=== PATIENT | male | born 1985 | race Caucasian/White ===

== ENCOUNTER 2021-03-06 06:44 | Inpatient (IN) | payer OTHER ==
[2021-03-06] MEDS ORDERED: KETOROLAC TROMETHAMINE 15 MG/ML VIAL IVPUSH ONE (08:00)
[2021-03-06] MEDS ORDERED: LIDOCAINE 5% TOPICAL PATCH TP ONE (08:00)
[2021-03-06] MEDS ORDERED: KETOROLAC TROMETHAMINE 15 MG/ML VIAL ONE (08:37)
[2021-03-06] MEDS ORDERED: KETOROLAC TROMETHAMINE 15 MG/ML VIAL IM ONE (08:56)
[2021-03-06 09:06] LABS: BASO % 0.9 % (0-2.0); EOS % 7.3 % (0-4.5); HEMATOCRIT 38.4 % (35.4-49); LYMPH % 44.1 % (8-40); MCH 31.5 pg (25.7-33.7); MCHC 33.8 g/dl (32.0-35.9); MEAN CELL VOLUME 93.1 fl (80-96); MEAN PLT VOLUME 7.8 fl (7.5-11.1); MONO % 7.1 % (3.8-10.2); NEUT % 40.6 % (42.8-82.8); PLATELET COUNT 454 10^3/uL (134-434); RBC 4.12 M/mm3 (4.00-5.60); RDW 13.7 % (11.9-15.9); WHITE BLOOD COUNT 9.8 K/mm3 (4.0-10.0)
[2021-03-06 09:43] LABS: CALCIUM 8.9 mg/dL (8.5-10.1)
[2021-03-06 09:45] LABS: BLOOD UREA NITROGEN 13.6 mg/dL (7-18)
[2021-03-06] MEDS ORDERED: morphine SULFATE 4 MG/ML VIAL IVPUSH ONE (09:59)
[2021-03-06 18:22] VITALS: BMI 22.2
[2021-03-06] MEDS: CYCLOBENZAPRINE HCL 5 MG TABLET PO PRN (19:49)
[2021-03-06] MEDS: morphine SULFATE 4 MG/ML VIAL IVPUSH PRN (21:10)
[2021-03-06] MEDS ORDERED: LIDOCAINE PATCH REMOVAL MC SCH (22:00)
[2021-03-06] MEDS: LIDOCAINE PATCH REMOVAL MC SCH (23:26)
[2021-03-07] MEDS: CYCLOBENZAPRINE HCL 5 MG TABLET PO PRN ×3 (04:32→23:20)
[2021-03-07 08:30] LABS: EOS % 10.4 % (0-4.5); HEMATOCRIT 36.8 % (35.4-49); HEMOGLOBIN 12.5 GM/dL (11.7-16.9); MCH 31.4 pg (25.7-33.7); MCHC 33.9 g/dl (32.0-35.9); MEAN CELL VOLUME 92.6 fl (80-96); NEUT % 28.6 % (42.8-82.8); PLATELET COUNT 410 10^3/uL (134-434); RBC 3.98 M/mm3 (4.00-5.60); RDW 13.8 % (11.9-15.9); WHITE BLOOD COUNT 7.5 K/mm3 (4.0-10.0)
[2021-03-07 08:58] LABS: CREATININE 1.3 mg/dL (0.55-1.3)
[2021-03-07 08:59] LABS: ALBUMIN 2.9 g/dl (3.4-5.0); CALCIUM 8.6 mg/dL (8.5-10.1); MAGNESIUM 2.3 mg/dL (1.8-2.4)
[2021-03-07 09:00] LABS: BILIRUBIN,TOTAL 0.2 mg/dL (0.2-1); TOT PROT 5.9 g/dl (6.4-8.2)
[2021-03-07] MEDS: morphine SULFATE 4 MG/ML VIAL IVPUSH PRN (10:37)
[2021-03-07] MEDS: LIDOCAINE 5% TOPICAL PATCH TP SCH (10:37)
[2021-03-07] MEDS: NICOTINE 7 MG/24 HOURS TOPICAL PATCH TD SCH (12:27)
[2021-03-07] MEDS: traMADol HCL 50 MG TABLET PO PRN ×2 (12:27→21:04)
[2021-03-07] MEDS: DOCUSATE SODIUM 100 MG CAPSULE (FP) PO SCH ×2 (12:27→21:04)
[2021-03-07] MEDS: ACETAMINOPHEN 325 MG TABLET (FP) PO PRN (17:26)
[2021-03-07] MEDS: GABAPENTIN 100 MG CAPSULE PO SCH (21:04)
[2021-03-07] MEDS: LIDOCAINE PATCH REMOVAL MC SCH (21:13)
[2021-03-07] MEDS ORDERED: MELATONIN 5 MG TABLETS PO ONE (23:07)
[2021-03-08 08:38] LABS: BASO % 0.9 % (0-2.0); EOS % 9.2 % (0-4.5); HEMATOCRIT 40.7 % (35.4-49); HEMOGLOBIN 13.8 GM/dL (11.7-16.9); LYMPH % 49.8 % (8-40); MCH 31.7 pg (25.7-33.7); MCHC 33.9 g/dl (32.0-35.9); MEAN CELL VOLUME 93.4 fl (80-96); MEAN PLT VOLUME 8.3 fl (7.5-11.1); MONO % 7.1 % (3.8-10.2); PLATELET COUNT 378 10^3/uL (134-434); RBC 4.36 M/mm3 (4.00-5.60); RDW 13.5 % (11.9-15.9); WHITE BLOOD COUNT 6.5 K/mm3 (4.0-10.0)
[2021-03-08 08:58] LABS: ALBUMIN 3.2 g/dl (3.4-5.0); BLOOD UREA NITROGEN 16.9 mg/dL (7-18); MAGNESIUM 2.3 mg/dL (1.8-2.4)
[2021-03-08 09:01] LABS: CREATININE 1.3 mg/dL (0.55-1.3); PHOSPHOROUS 4.3 mg/dL (2.5-4.9)
[2021-03-08 09:03] LABS: BILIRUBIN,TOTAL 0.3 mg/dL (0.2-1); TOT PROT 6.6 g/dl (6.4-8.2)
[2021-03-08] MEDS: NICOTINE 7 MG/24 HOURS TOPICAL PATCH TD SCH (09:42)
[2021-03-08] MEDS: CYCLOBENZAPRINE HCL 5 MG TABLET PO PRN ×3 (09:56→22:18)
[2021-03-08] MEDS: GABAPENTIN 100 MG CAPSULE PO SCH ×2 (09:56→22:17)
[2021-03-08] MEDS: DOCUSATE SODIUM 100 MG CAPSULE (FP) PO SCH ×2 (10:01→22:20)
[2021-03-08] MEDS: LIDOCAINE 5% TOPICAL PATCH TP SCH (10:01)
[2021-03-08] MEDS ORDERED: NICOTINE 14 MG/24 HOURS TOPICAL PATCH TD SCH ×2 (11:05→19:00)
[2021-03-08] MEDS ORDERED: NICOTINE POLACRILEX 2 MG GUM BUC PRN (11:06)
[2021-03-08] MEDS ORDERED: PT OWN MED DRAWER 7, Y5N ONE (12:53)
[2021-03-08] MEDS ORDERED: MELATONIN 5 MG TABLETS PO SCH (22:00)
[2021-03-08] MEDS: ACETAMINOPHEN 325 MG TABLET (FP) PO PRN (22:18)
[2021-03-08] MEDS: LIDOCAINE PATCH REMOVAL MC SCH (22:21)
[2021-03-08 22:44] VITALS: TEMP 98.7
[2021-03-09 07:16] VITALS: BP 124/70; PULSE 58
[2021-03-09 08:15] LABS: BASO % 0.8 % (0-2.0); EOS % 8.2 % (0-4.5); HEMATOCRIT 42.1 % (35.4-49); HEMOGLOBIN 14.4 GM/dL (11.7-16.9); LYMPH % 36.7 % (8-40); MCH 31.8 pg (25.7-33.7); MCHC 34.3 g/dl (32.0-35.9); MEAN CELL VOLUME 92.6 fl (80-96); MEAN PLT VOLUME 8.2 fl (7.5-11.1); MONO % 8.8 % (3.8-10.2); NEUT % 45.5 % (42.8-82.8); PLATELET COUNT 365 10^3/uL (134-434); RBC 4.55 M/mm3 (4.00-5.60); RDW 13.7 % (11.9-15.9); WHITE BLOOD COUNT 6.7 K/mm3 (4.0-10.0)
[2021-03-09 08:35] LABS: ALBUMIN 3.4 g/dl (3.4-5.0); CALCIUM 9.3 mg/dL (8.5-10.1)
[2021-03-09 08:36] LABS: BLOOD UREA NITROGEN 17.7 mg/dL (7-18)
[2021-03-09 08:38] LABS: BILIRUBIN,TOTAL 0.3 mg/dL (0.2-1); TOT PROT 6.8 g/dl (6.4-8.2)
[2021-03-09 08:39] LABS: CREATININE 1.2 mg/dL (0.55-1.3)
== END 2021-03-09 10:58 | disposition left against medical advice (07) | DRG 347 ==
LOC: JER 06:44 → JERBED 08:18 → J7W 18:25
PROVIDERS: ADMIT Internal Medicine; ATTEND Internal Medicine
DX: M54.50 Low back pain, unspecified (principal); D47.3 Essential (hemorrhagic) thrombocythemia; R00.1 Bradycardia, unspecified; F12.90 Cannabis use, unspecified, uncomplicated; M54.2 Cervicalgia; Z59.00 Homelessness unspecified; M54.12 Radiculopathy, cervical region; R45.851 Suicidal ideations; R26.2 Difficulty in walking, not elsewhere classified
CPT/HCPCS: 36415; 71046-TC-FY; 72070-TC-FY; 72100-TC-FY; 72125-TC; 72141-TC; 72148-TC; 73110-TC-LT-FY; 73130-TC-LT-FY; 80048; 80053; 83735; 84100; 85025; 93005; 93010; 97116-GP; 97161-GP; 99285-25; C9803; U0003; U0005

== ENCOUNTER 2021-03-11 14:33 | Emergency (ER) | payer OTHER ==
[2021-03-11 14:43] VITALS: BP 116/74; PULSE 97; TEMP 97.9; BMI 22.4
[2021-03-11] MEDS ORDERED: METHOCARBAMOL 500 MG TABLET PO ONE (16:22)
[2021-03-11] MEDS ORDERED: KETOROLAC TROMETHAMINE 30 MG/1 ML VIAL IM ONE (16:23)
[2021-03-11] MEDS ORDERED: METHOCARBAMOL 500 MG TABLET ONE (16:25)
[2021-03-11] MEDS ORDERED: KETOROLAC TROMETHAMINE 30 MG/1 ML VIAL ONE (16:25)
== END 2021-03-11 17:20 | disposition home or self-care (01) ==
LOC: JER 14:33
PROC: 3E023GC Introduction of Other Therapeutic Substance into Muscle, Percutaneous Approach (ICD-10-PCS; principal; 2021-03-11)
DX: M54.50 Low back pain, unspecified (principal)
CPT/HCPCS: 99284-25

== ENCOUNTER 2021-03-18 15:54 | Emergency (ER) | payer OTHER ==
[2021-03-18 16:10] VITALS: BP 120/78; PULSE 96; TEMP 98; BMI 22.4
[2021-03-18] MEDS ORDERED: KETOROLAC TROMETHAMINE 30 MG/1 ML VIAL IM ONE (17:50)
[2021-03-18] MEDS ORDERED: KETOROLAC TROMETHAMINE 30 MG/1 ML VIAL ONE (18:23)
== END 2021-03-18 18:35 | disposition home or self-care (01) ==
LOC: JERFT 15:54
DX: M54.50 Low back pain, unspecified (principal)
CPT/HCPCS: 99283-25

== ENCOUNTER 2021-03-18 21:02 | Emergency (ER) | payer OTHER ==
[2021-03-18 21:37] VITALS: BP 116/81; PULSE 65; TEMP 98; BMI 21.7
[2021-03-18] MEDS ORDERED: ACETAMINOPHEN 500 MG TABLET (FP) PO ONE (22:08)
[2021-03-18] MEDS ORDERED: MAG HYDROX/AL HYDROX/SIMETH 30 ML UNIT-DOSE CUP PO ONE (22:08)
[2021-03-18] MEDS ORDERED: FAMOTIDINE 20 MG TABLET PO ONE (22:08)
[2021-03-18] MEDS ORDERED: METOCLOPRAMIDE HCL 10 MG TABLET (FP) PO ONE (22:08)
[2021-03-18] MEDS ORDERED: ONDANSETRON 4 MG TABLET PO ONE (22:13)
[2021-03-18] MEDS ORDERED: ONDANSETRON *ODT* 4 MG TABLET ONE (23:29)
[2021-03-18] MEDS ORDERED: MAG HYDROX/AL HYDROX/SIMETH 30 ML UNIT-DOSE CUP ONE (23:30)
[2021-03-18] MEDS ORDERED: FAMOTIDINE 20 MG TABLET ONE (23:30)
== END 2021-03-19 01:07 | disposition home or self-care (01) ==
LOC: JER 21:02
PROC: 3E0233Z Introduction of Anti-inflammatory into Muscle, Percutaneous Approach (ICD-10-PCS; principal; 2021-03-18)
DX: R51.9 Headache, unspecified (principal); R11.0 Nausea; M54.9 Dorsalgia, unspecified
CPT/HCPCS: 99284-25

== ENCOUNTER 2021-04-03 16:54 | Emergency (ER) | payer OTHER ==
[2021-04-03 18:21] VITALS: BMI 21.9
[2021-04-03] MEDS ORDERED: KETOROLAC TROMETHAMINE 30 MG/1 ML VIAL IVPUSH ONE (18:23)
[2021-04-03] MEDS ORDERED: oxyCODONE HCL 5 MG TABLET PO ONE (18:23)
[2021-04-03] MEDS ORDERED: LIDOCAINE 5% TOPICAL PATCH TP ONE (18:24)
[2021-04-03] MEDS ORDERED: ACETAMINOPHEN 325 MG TABLET (FP) PO ONE (18:24)
[2021-04-03] MEDS ORDERED: KETOROLAC TROMETHAMINE 30 MG/1 ML VIAL ONE (19:10)
[2021-04-03] MEDS ORDERED: oxyCODONE HCL 5 MG TABLET ONE (19:29)
[2021-04-03] MEDS ORDERED: ACETAMINOPHEN 325 MG TABLET (FP) ONE (19:29)
[2021-04-03] MEDS ORDERED: LIDOCAINE 5% TOPICAL PATCH ONE (19:30)
[2021-04-03 20:21] LABS: CHLORIDE 107 mmol/L (98-107); SODIUM 140 mmol/L (136-145)
[2021-04-03 20:23] LABS: CALCIUM 9.2 mg/dL (8.5-10.1)
[2021-04-03 20:24] LABS: ALBUMIN 3.9 g/dl (3.4-5.0); ANION GAP 6 MMOL/L (8-16); CO2 27 mmol/L (21-32); GLUCOSE,RANDOM 86 mg/dL (74-106)
[2021-04-03 20:26] LABS: EOS % 13.3 % (0-4.5); HEMATOCRIT 43.6 % (35.4-49); HEMOGLOBIN 14.8 GM/dL (11.7-16.9); LYMPH % 36.2 % (8-40); MCH 31.6 pg (25.7-33.7); MEAN CELL VOLUME 92.9 fl (80-96); MEAN PLT VOLUME 8.8 fl (7.5-11.1); MONO % 6.5 % (3.8-10.2); PLATELET COUNT 273 10^3/uL (134-434); RBC 4.69 M/mm3 (4.00-5.60); RDW 14.4 % (11.9-15.9); WHITE BLOOD COUNT 7.6 K/mm3 (4.0-10.0)
[2021-04-03 20:27] LABS: CREATININE 1.2 mg/dL (0.55-1.3); SGOT/AST 13 U/L (15-37); SGPT/ALT 20 U/L (13-61)
[2021-04-03 20:28] LABS: BILIRUBIN,TOTAL 0.4 mg/dL (0.2-1); TOT PROT 7.3 g/dl (6.4-8.2)
[2021-04-03 20:30] LABS: ALK PHOS 79 U/L (45-117)
[2021-04-03] MEDS ORDERED: MELATONIN 5 MG TABLETS PO ONE (21:13)
[2021-04-03] MEDS ORDERED: hydrOXYzine HCL 100 MG/2 ML VIAL IM ONE (21:19)
[2021-04-03] MEDS ORDERED: hydrOXYzine HCL 50 MG/ML VIAL IM ONE (21:22)
[2021-04-03] MEDS ORDERED: LIDOCAINE PATCH REMOVAL MC SCH (22:00)
[2021-04-04 16:26] VITALS: TEMP 97
[2021-04-04 16:41] VITALS: BP 103/73; PULSE 67
== END 2021-04-04 12:42 | disposition home or self-care (01) ==
LOC: JER 16:54
PROC: 3E023NZ Introduction of Analgesics, Hypnotics, Sedatives into Muscle, Percutaneous Approach (ICD-10-PCS; principal; 2021-04-03)
PROC: 3E0333Z Introduction of Anti-inflammatory into Peripheral Vein, Percutaneous Approach (ICD-10-PCS; 2021-04-03)
DX: M54.50 Low back pain, unspecified (principal); R45.851 Suicidal ideations
CPT/HCPCS: 36415; 70450-TC; 72125-TC; 80053; 80307; 85025; 93005; 93010; 99285-25; C9803; U0003; U0005

== ENCOUNTER 2021-04-11 01:36 | Emergency (ER) | payer OTHER ==
[2021-04-11] MEDS ORDERED: KETOROLAC TROMETHAMINE 30 MG/1 ML VIAL IM ONE (03:21)
[2021-04-11] MEDS ORDERED: KETOROLAC TROMETHAMINE 30 MG/1 ML VIAL ONE (03:31)
[2021-04-11 03:53] VITALS: BP 113/71; PULSE 82; TEMP 97.8; BMI 21.7
== END 2021-04-11 04:13 | disposition home or self-care (01) ==
LOC: JER 01:36
PROC: 3E0233Z Introduction of Anti-inflammatory into Muscle, Percutaneous Approach (ICD-10-PCS; principal; 2021-04-11)
DX: M54.50 Low back pain, unspecified (principal)
CPT/HCPCS: 99284-25